=== PATIENT | male | born 1985 | race Hispanic/Latino ===

== ENCOUNTER 2017-12-30 11:41 | Emergency (ER) | payer SELFPAY | END 2017-12-30 12:30 | disposition home or self-care (01) | LOC: SCSER 11:41 | DX: J06.9 Acute upper respiratory infection, unspecified (principal) | CPT/HCPCS: 99282 ==

== ENCOUNTER 2019-01-21 15:28 | Emergency (ER) | payer SELFPAY ==
[2019-01-21 16:05] LABS: #Basophils 0.1 thou/uL (0.0-0.2); #Eosinphils 0.1 thou/uL (0.0-0.7); #Lymphocytes 1.6 thou/uL (1.20-3.40); #Monocytes 0.7 thou/uL (0.11-0.59); #Neutrophils 8.3 thou/uL (1.40-6.50); %Basophils 0.6 % (0.0-1.0); %Lymphocytes 14.9 % (21.0-51.0); %Monocytes 6.3 % (0.0-10.0); %Neutrophils 77.3 % (42.0-75.0); Hemoglobin 15.9 g/dL (14.0-18.0); Mean Corpuscular HGB CONC 34.8 g/dL (32.0-36.0); Mean Corpuscular Hemoglobin 30.9 pg (27.0-31.0); Mean Corpuscular Volume 88.9 fL (78.0-98.0); Mean Platelet Volume 9.2 fL (7.4-10.4); Platelet Count 225 thou/uL (130-400); RBC Distribution Width 11.1 % (11.5-14.5); Red Blood Cell (RBC) Count 5.13 mill/uL (4.70-6.10); White Blood Cell (WBC) Count 10.7 thou/uL (4.8-10.8)
[2019-01-21 16:19] LABS: ALT (SGPT) 26 U/L (8-55); AST (SGOT) 20 U/L (5-34); Albumin 4.6 g/dL (3.5-5.0); Alkaline Phosphatase 90 U/L (40-150); Anion Gap 12 mmol/L (10-20); BUN (Urea Nitrogen) 11 mg/dL (8.9-20.6); Bilirubin, Total 0.9 mg/dL (0.2-1.2); Calc. Creatinine Clearance 0 mL/min (70-130); Calcium 9.7 mg/dL (7.8-10.44); Carbon Dioxide 27 mmol/L (22-29); Chloride 105 mmol/L (98-107); Estimated GFR-MDRD Greater than 90; Globulin 3.1 g/dL (2.4-3.5); Glucose 88 mg/dL (70-105); Potassium 3.8 mmol/L (3.5-5.1); Protein, Total 7.7 g/dL (6.0-8.3); Sodium 140 mmol/L (136-145)
[2019-01-21] MEDS ORDERED: Lidocaine 1% PF 5 ML VIAL ONE ×2 (16:35→16:41)
--- NOTE | 2019-01-21 16:37 | RAD ---
RIGHT KNEE FOUR VIEWS: History: Knee pain. Comparison: None. FINDINGS: There is a moderate joint effusion. There is prepatellar and infrapatellar soft tissue swelling. No a cute displaced fracture or malalignment. IMPRESSION: Soft tissue swelling can be seen with cellulitis. No acute fracture or malalignment. POS: [facility]
[2019-01-21 19:28] LABS: BF Color Red; BF WBC/Nonhematics Ct. - Manua 53 /cumm; Body Fluid Source Synovial Fluid; Clarity Cloudy/Turbid (Clear); RBC Count-Automated 39000 /cumm; Tube # 1; WBC Background Count 0.01
[2019-01-21 19:41] LABS: BF Segmented Neutrophils 91 %; Lymphocytes 9 %
[2019-01-21] MEDS ORDERED: Ketorolac Tromethamine 60 MG/2 ML VIAL ONE (19:48)
== END 2019-01-21 20:15 | disposition home or self-care (01) ==
LOC: SCSER 15:28
DX: L03.115 Cellulitis of right lower limb (principal)
CPT/HCPCS: 20610; 36415; 80053; 84560; 85025; 85060; 87070; 87205; 89051; 89060; 96372; J1885; J2001